=== PATIENT | female | born 1985 | race Caucasian/White ===

== ENCOUNTER → 2017-01-09 | Outpatient (CLI) | payer OTHER ==
[~2017-01-09] MED LIST: BCPILLS PO; FEXO1TAB58 PO; FLUT0.15 NAE; IBUP-1050 PO; OMEP40CA PO
[2017-01-09 13:15] LABS: BASO % 0.5 %; BASO ABS # 0.04 K/uL (0-0.2); COMPLETE YES; EOS % 2.5 %; HEMATOCRIT 44.7 % (37-47); IG% 0.4 %; LYMPH % 34.8 %; LYMPH ABS # 2.93 K/uL (1.2-3.4); MEAN CELL VOLUME 84.3 fL (80-100); MEAN CORPUSCULAR HEMOGLOBIN 28.9 pg (25-34); MEAN CORPUSCULAR HGB CONC 34.2 g/dl (32-36); MEAN PLATELET VOLUME 11.3 fL (7.4-10.4); MONO % 5.2 %; NEUT % 56.6 %; PLATELET COUNT 209 K/uL (130-400); WHITE BLOOD COUNT 8.43 K/uL (4.8-10.8)
[2017-01-09 16:02] LABS: AST/SGOT 11 U/L (15-37); BLOOD UREA NITROGEN 11 mg/dl (7-18); BUN/CREATININE RATIO 13.5 (10-20); CALCIUM 8.7 mg/dl (8.5-10.1); CARBON DIOXIDE 20 mmol/L (21-32); CHLORIDE 111 mmol/L (98-107); CREATININE 0.81 mg/dl (0.60-1.20); GLUCOSE 85 mg/dl (70-99); POTASSIUM 4.5 mmol/L (3.5-5.1); SODIUM 142 mmol/L (136-145)
[2017-01-09 16:12] LABS: ALKALINE PHOSPHATASE 59 U/L (45-117); ALT/SGPT 19 U/L (12-78); CHOLESTEROL 208 mg/dl (0-200); CHOLESTEROL/HDL RATIO 6.1; HDL CHOLESTEROL 34 mg/dl; LDL CHOLESTEROL CALCULATED 131 mg/dl; TRIGLYCERIDES 216 mg/dl (0-150); VERY LOW DENSITY LIPOPROT CALC 43 mg/dl
== END | disposition home or self-care (01) ==
LOC: C.LABMFLN 08:38
PROVIDERS: ATTEND Internal Medicine
DX: Z00.00 Encounter for general adult medical examination without abnormal findings (principal); N92.6 Irregular menstruation, unspecified; R10.9 Unspecified abdominal pain; R19.7 Diarrhea, unspecified; E78.5 Hyperlipidemia, unspecified

== ENCOUNTER → 2017-02-01 | Outpatient (CLI) | payer OTHER ==
--- NOTE | 2017-02-01 10:35 | DIAGNOSTIC IMAGING REPORT ---
LEFT KNEE 3 VIEWS HISTORY: M25.562 Left knee [id number] COMPARISON: Left knee 09/30/2007. FINDINGS: There is no fracture or dislocation. Soft tissues are unremarkable. No knee effusion. Cartilage spaces are maintained for age. Tiny marginal osteophytes at the patella. IMPRESSION: Tiny marginal osteophytes at the patella. Otherwise, normal left knee. Electronically signed by: Sree Pagan M.D. 02/01/2017 10:34 AM Dictated Date/Time: 02/01/2017 10:32 AM
== END | disposition home or self-care (01) ==
LOC: C.RAD 09:55
PROVIDERS: ATTEND Internal Medicine
DX: M25.562 Pain in left knee (principal); M25.762 Osteophyte, left knee

== ENCOUNTER → 2017-05-30 | Day surgery (SDC) | payer OTHER ==
[2017-05-29 11:32] VITALS: Ht 167.6 cm; Wt 102.7 kg
[~2017-05-30] VITALS: Ht 167.6 cm; Wt 102.7 kg
[~2017-05-30] MED LIST changes: -FEXO1TAB58 PO; -FLUT0.15 NAE; -IBUP-1050 PO; -OMEP40CA PO
[2017-05-30 12:16] VITALS: BP 99/67; PULSE 65; TEMP 36.7; O2SAT 96
--- NOTE | 2017-05-31 08:09 | Procedure Note ---
Breath Hydrogen Test Interpretation Assessment: Normal Lactose breath test Plan: No findings on Lactose breath test to explain patient's symptoms. Followup with PCP and Gastroenterology for further evaluation and recommendations.
== END | disposition home or self-care (01) ==
LOC: C.GI 11:26
PROVIDERS: ATTEND Internal Medicine
DX: R14.0 Abdominal distension (gaseous) (principal); R10.9 Unspecified abdominal pain

== ENCOUNTER → 2018-07-02 | Outpatient (CLI) | payer BC ==
--- NOTE | 2018-07-02 13:20 | DIAGNOSTIC IMAGING REPORT ---
R SHOULDER MIN 2 VIEWS ROUTINE CLINICAL HISTORY: M25.511 Bilateral shoulder painBOTH COMPARISON: None. DISCUSSION: The bones and joint spaces appear intact. There is no evidence of fracture, dislocation or bony disease. There is no evidence for soft tissue swelling. IMPRESSION: Negative study. The above report was generated using voice recognition software. It may contain grammatical, syntax or spelling errors. Electronically signed by: Yury Grubbs M.D. 07/02/2018 1:19 PM Dictated Date/Time: 07/02/2018 1:19 PM
--- NOTE | 2018-07-02 13:52 | DIAGNOSTIC IMAGING REPORT ---
L SHOULDER MIN 2 VIEWS ROUTINE CLINICAL HISTORY: M25.511,M25.512 pain COMPARISON: None. DISCUSSION: The bones and joint spaces appear intact. There is no evidence of fracture, dislocation or bony disease. There is no evidence for soft tissue swelling. IMPRESSION: Negative study. The above report was generated using voice recognition software. It may contain grammatical, syntax or spelling errors. Electronically signed by: Yury Grubbs M.D. 07/02/2018 1:51 PM Dictated Date/Time: 07/02/2018 1:50 PM
== END | disposition home or self-care (01) ==
LOC: C.RAD 12:33
PROVIDERS: ATTEND Nurse Practitioner
DX: M25.511 Pain in right shoulder (principal); M25.512 Pain in left shoulder